=== PATIENT | female | born 1970 | race Caucasian/White ===

== ENCOUNTER 2024-10-02 15:09 | Outpatient (CLI) | payer OTHER, SELFPAY | END 2024-10-02 15:10 | disposition home or self-care (01) | LOC: AMB 10-19 00:35 | PROVIDERS: Visit Provider Emergency Medicine | DX: S79.912A Unspecified injury of left hip, initial encounter (principal); S29.9XXA Unspecified injury of thorax, initial encounter; V43.51XA Car driver injured in collision with sport utility vehicle in traffic accident, initial encounter; Y92.410 Unspecified street and highway as the place of occurrence of the external cause | CPT/HCPCS: A0998 ==